=== PATIENT | male | born 2005 | race Two or more races ===

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

== ENCOUNTER 2024-11-16 14:47 | Emergency (ER) | payer SELFPAY | END 2024-11-16 15:24 | disposition left against medical advice (07) | LOC: ER 14:47 | DX: R20.0 Anesthesia of skin (principal); Z53.21 Procedure and treatment not carried out due to patient leaving prior to being seen by health care provider ==